=== PATIENT | female | born 1965 | race Caucasian/White ===

== ENCOUNTER → 2023-11-29 10:11 | Outpatient (REF) | payer BC, SELFPAY | LOC: RAD 10:11 | PROVIDERS: ATTENDING PHYSICIAN Internal Medicine | DX: Z78.0 Asymptomatic menopausal state (principal); Z13.820 Encounter for screening for osteoporosis | CPT/HCPCS: 77080 ==

== ENCOUNTER → 2024-03-06 16:59 | Outpatient (REF) | payer BC, SELFPAY | LOC: WDC 16:59 | PROVIDERS: ATTENDING PHYSICIAN Internal Medicine | DX: Z12.31 Encounter for screening mammogram for malignant neoplasm of breast (principal) | CPT/HCPCS: 77063; 77067 ==

== ENCOUNTER → 2024-04-12 11:02 | Outpatient (REF) | payer BC, SELFPAY | LOC: RAD 11:02 | PROVIDERS: ATTENDING PHYSICIAN Internal Medicine | DX: M54.50 Low back pain, unspecified (principal); M25.552 Pain in left hip | CPT/HCPCS: 72110; 73523 ==